=== PATIENT | male | born 1935 | race Caucasian/White ===

== ENCOUNTER 2017-07-11 23:07 | Emergency (ER) | payer MEDICARE ==
[2017-07-11 23:28] VITALS: O2SAT 100
--- NOTE | 2017-07-11 23:46 | ED.PDOC ---
History of Present Illness - General Chief Complaint: Abdominal Pain Stated Complaint: abdominal pain Time Seen by Provider: 07/11/17 23:39 Information Source: patient Exam Limitations: no limitations - History of Present Illness Initial Comments: ABD PAIN X 2 HRS. ONSET - IT AWOKE HIM FROM SLEEP. CONSTANT. IMPROVING. NO NVDC. NO CP/SOB. BM YEST NL. NO SIMILAR PREVIOUS. H/O SBO2 YRS AGO AND PT STATES "THAT WAS 10 TIMES WORSE." HAD LAP APPY IN PAST. Abdominal Pain Onset Location: epigastric Pain Radiation: no radiation Quality: mild, sharpness Timing/Duration: 1-3 hours Improving Factors: nothing Worsening Factors: nothing Associated Symptoms: denies symptoms Review of Systems - Review of Systems Constitutional: Denies: chills, diaphoresis, fever EENTM: States: no symptoms reported Respiratory: States: no symptoms reported Cardiology: Denies: chest pain, palpitations Gastrointestinal/Abdominal: States: abdominal pain. Denies: constipation, diarrhea, nausea, vomiting Genitourinary: States: no symptoms reported. Denies: dysuria, frequency, pain Musculoskeletal: States: no symptoms reported Skin: States: no symptoms reported Neurological: States: no symptoms reported Endocrine: States: no symptoms reported Hematologic/Lymphatic: States: no symptoms reported All other Systems: Reviewed and Negative Past Medical History (General) - Patient Medical History Hx Stroke: Yes Hx of COPD: Yes Hx Congestive Heart Failure: No Hx Hypertension: Yes Hx Diabetes: No Hx Gastroesophageal Reflux: No - hiatal hernia Hx MRSA: No - Vaccination History Hx Influenza Vaccination: No Hx Pneumococcal Vaccination: Yes - Social History Hx Tobacco Use: Yes Cigarettes Packs Per Day: 1 Hx Alcohol Use: No Family Medical History - Family History Father Family History: Unknown Living Status: Unknown Physical Exam - Physical Exam General Appearance: Comfortable, No apparent distress, Well Nourished Eyes, Ears, Nose, Throat Exam: PERRL/EOMI, normal ENT inspection, TMs normal Neck: full range of motion, supple Respiratory: chest non-tender, lungs clear Cardiovascular/Chest: normal peripheral pulses, regular rate, rhythm Peripheral Pulses: No deficit Gastrointestinal/Abdominal: normal bowel sounds, soft, no organomegaly, no pulsatile mass, other - EPIGASTRIC JUST BARELY TO DEEP PALPATION BUT NOT TO LIGHT PALPATION. NO GUARDING OR REBOUND. NO TYMPANI. NO FLUID WAVE. Back Exam: no CVA tenderness, no vertebral tenderness Extremity: non-tender, normal inspection Neurologic: no motor/sensory deficits, alert, normal mood/affect Skin Exam: normal color, warm/dry Lymphatic: no adenopathy Special Observations: No evidence of discomfort Progress - Progress Progress: 07/12/17 00:00 CLINICALLY C/W GERD/DYSPEPSIA - OCCURRED WHILE SUPIN (IN BED); IS IMPROVING NOW THAT IS SITTING UPRIGHT IN ER; SOLITARY SYMPTOM (NO NVDC); ABD EXAM IS BENIGN AND IS NOT AN ACUTE SURGICAL ABDOMEN; VS WNL (NO HYPOTENSION OR TACHYCARDIA). GI COCKTAIL AND ZANTAC GIVEN. 07/12/17 00:21 PT STATES THE PAIN IMPROVED ALL OF A SUDDEN. SAFE FOR DC TO HOME W/ F/U. Departure - Departure Clinical Impression: Dyspepsia Disposition: Discharge to Home or Self Care Condition: Good Departure Forms: ED Discharge - Pt. Copy, Patient Portal Self Enrollment Instructions: DI for Dyspepsia Diet: regular diet Activity: increase activity as tolerated Referrals: Anny Hanson NP [Primary Care Provider] - 1 Week Prescriptions: raNITIdine HCL [Zantac] 150 mg PO BID 15 Days Home Medications: Ambulatory Orders Albuterol Sulfate [Proair Hfa] 2 puff INH Q4H PRN 07/15/16 Finasteride [Proscar] 5 mg PO DAILY 07/15/16 Lisinopril 20 mg PO DAILY 07/15/16 raNITIdine HCL [Zantac] 150 mg PO BID 15 Days 07/12/17 Additional Instructions: The symptoms you are having and consistent with gastroesophageal reflux, where the stomach acid causes pains in the upper abdomen. The medicine I prescribed helps but only works if you take it consistently twice per day. Please take the medicine twice per day for 1 week and follow-up with your nurse practitioner to inform her if it is working or not. From there, he or she may alter the treatment or run more tests. If it worsens before then, please see her sooner or return to the ER.
[2017-07-11] MEDS ORDERED: LIDOCAINE VIS-MYLANTA 30 ML UD PO ONE (23:47)
[2017-07-11] MEDS: LIDOCAINE VIS-MYLANTA 30 ML UD PO ONE (23:57)
[2017-07-12 00:39] VITALS: BP 155/86; TEMP 98.6
== END 2017-07-12 00:39 | disposition home or self-care (01) ==
LOC: ER 23:07
DX: R10.13 Epigastric pain (principal); J44.9 Chronic obstructive pulmonary disease, unspecified; Z86.73 Personal history of transient ischemic attack (TIA), and cerebral infarction without residual deficits

== ENCOUNTER → 2018-02-16 | Outpatient (CLI) | payer MEDICARE ==
--- NOTE | 2018-02-16 17:13 | RAD ---
EXAM DESCRIPTION: KUB CLINICAL HISTORY: LEFT FLANK PN COMPARISON: None Available. TECHNIQUE: KUB FINDINGS: There is an unremarkable bowel gas pattern. No small bowel dilatation to suggest obstruction. Dextroscoliotic curvature of the lumbar spine is seen with multilevel spurring. There is no mass or calculus observed. Left kidney silhouette is obscured by overlying fecal material and bowel gas. IMPRESSION: No acute process. Electronically signed by: Michael Garsia MD 02/16/2018 5:11 PM CDT
== END ==
LOC: YCFC.O 12:31
PROVIDERS: ATTEND Nurse Practitioner Family
DX: R10.9 Unspecified abdominal pain (principal)

== ENCOUNTER → 2018-03-02 | Outpatient (CLI) | payer MEDICARE ==
--- NOTE | 2018-03-03 08:47 | RAD ---
EXAM DESCRIPTION: Hip,Left 2 Views CLINICAL HISTORY: 82 years, Male, LEFT HIP PAIN. M25.552 COMPARISON: None TECHNIQUE: AP and frog leg lateral views of the hip FINDINGS: 2 views of the left hip reveal no fracture or dislocation. Moderate spurring of the lateral acetabular margin. Convex superolateral left femoral head neck junction could indicate presence of impingement. Mild spurring of the inferior acetabular rim. Degenerative changes are seen in the lower L-spine. Sacrum and left hemipelvis appear intact. No proximal femoral fracture or lytic lesion. IMPRESSION: Negative for fracture or dislocation. Electronically signed by: Michael Garsia MD 03/03/2018 8:45 AM CDT
== END ==
LOC: YCFC.O 10:17
PROVIDERS: ATTEND Nurse Practitioner Family
DX: M25.552 Pain in left hip (principal)

== ENCOUNTER 2019-05-20 08:19 | Emergency (ER) | payer MEDICARE, MEDICAID ==
--- NOTE | 2019-05-20 08:27 | ED.PDOC ---
History of Present Illness - General Chief Complaint: Neuro Symptoms/Deficits Time Seen by Provider: 05/20/19 08:22 Source: patient Exam Limitations: no limitations - History of Present Illness Initial Comments: Patient presents from [facility] with tremors. The staff reported to EMS that he was difficult to arouse. He had paroxysmal tremors in all extremities at that point. The patient reports them same. He says that he does not believe the tremors are due to being too cold. He has a history of CVA. No other complaints. Blood sugar 124 by EMS. Timing/Duration: unsure Severity: mild Improving Factors: nothing Worsening Factors: nothing Associated Symptoms: denies symptoms Allergies/Adverse Reactions: Allergies NO KNOWN ALLERGY Allergy (Verified 08/02/16 13:50) Home Medications: Ambulatory Orders Albuterol Sulfate [Proair Hfa] 2 puff INH Q4H PRN 07/15/16 Finasteride [Proscar] 5 mg PO DAILY 07/15/16 Lisinopril 20 mg PO DAILY 07/15/16 raNITIdine HCL [Zantac] 150 mg PO BID 15 Days tab 07/12/17 Review of Systems - Review of Systems Constitutional: States: no symptoms reported EENTM: States: no symptoms reported Respiratory: States: no symptoms reported Cardiology: States: no symptoms reported Gastrointestinal/Abdominal: States: no symptoms reported Genitourinary: States: no symptoms reported Musculoskeletal: States: no symptoms reported Skin: States: no symptoms reported Neurological: States: see HPI Endocrine: States: no symptoms reported Hematologic/Lymphatic: States: no symptoms reported Past Medical History (General) - Patient Medical History Hx Stroke: Yes Hx of COPD: Yes Hx Congestive Heart Failure: No Hx Hypertension: Yes Hx Diabetes: No Hx Gastroesophageal Reflux: No - hiatal hernia Hx MRSA: No - Vaccination History Hx Influenza Vaccination: No Hx Pneumococcal Vaccination: Yes - Social History Hx Tobacco Use: Yes Hx Alcohol Use: No Family Medical History - Family History Father Family History: Unknown Living Status: Unknown Physical Exam - Physical Exam General Appearance: Alert Eye Exam: bilateral normal Ears, Nose, Throat: normal ENT inspection Neck: non-tender, full range of motion, supple Respiratory: lungs clear, normal breath sounds Cardiovascular/Chest: normal peripheral pulses, regular rate, rhythm, no edema Gastrointestinal/Abdominal: normal bowel sounds, non tender, soft Back Exam: normal inspection, no CVA tenderness Extremity: normal range of motion, non-tender, normal inspection Neurologic: erp specialist II-XII nml as tested, alert, normal mood/affect, oriented x 3, other - paroxysmal tremors in the extremities. No loss of consciousness during these tremors that only last a second or less. Patient is aware of them. Skin Exam: normal color Lymphatic: no adenopathy Progress - Progress Progress: 05/20/19 10:12 Laboratory Tests 05/20/19 05/20/19 05/20/19 08:40 08:40 08:40 WBC 6.1 RBC 4.19 L Hgb 13.0 L Hct 38.4 L MCV 91.7 MCH 31.1 H MCHC 34.0 RDW 14.5 Plt Count 220 MPV 9.3 Absolute Neuts (auto) 4.20 Absolute Lymphs (auto) 1.10 Absolute Monos (auto) 0.60 Absolute Eos (auto) 0.10 Absolute Basos (auto) 0.10 Neutrophils % 68.9 Lymphocytes % 18.8 L Monocytes % 9.3 H Eosinophils % 2.1 Basophils % 0.9 PT 9.9 INR 0.99 PTT (SP) 24.2 Sodium 139 Potassium 4.4 Chloride 107 Carbon Dioxide 24 Anion Gap 12.4 BUN 21 H Creatinine 1.36 H BUN/Creatinine Ratio 15.4 Random Glucose 119 H Serum Osmolality 281.7 Calcium 9.0 Magnesium Total Bilirubin 0.6 AST 15 ALT 10 Alkaline Phosphatase 106 Creatine Kinase CK-MB (CK-2) CK-MB (CK-2) % Troponin I Serum Total Protein 6.8 Albumin 3.8 Globulin 3.0 Albumin/Globulin Ratio 1.3 05/20/19 08:40 WBC RBC Hgb Hct MCV MCH MCHC RDW Plt Count MPV Absolute Neuts (auto) Absolute Lymphs (auto) Absolute Monos (auto) Absolute Eos (auto) Absolute Basos (auto) Neutrophils % Lymphocytes % Monocytes % Eosinophils % Basophils % PT INR PTT (SP) Sodium Potassium Chloride Carbon Dioxide Anion Gap BUN Creatinine BUN/Creatinine Ratio Random Glucose Serum Osmolality Calcium Magnesium 2.3 Total Bilirubin AST ALT Alkaline Phosphatase Creatine Kinase 65 CK-MB (CK-2) 2.2 CK-MB (CK-2) % Not Reportable Troponin I < 0.02 Serum Total Protein Albumin Globulin Albumin/Globulin Ratio CT head showed no acute disease. There was a chronic lacunar infarct that was not on his previous CT head. Patient's symptoms resolved in the E.D. His son came and said that the patient had been anxious about the loss of his phone two days ago. He said that the patient was talking and acting at his baseline. No laboratory explanation for the resolved symptoms. Care instructions given. E.R. warnings given. Questions were elicited and answered. Patient voiced understanding and agreement with the plan. Departure - Departure Clinical Impression: Occasional tremors Disposition: Discharge to SNF Condition: Good Departure Forms: ED Discharge - Pt. Copy, Patient Portal Self Enrollment Diet: other - as per your regular doctor Activity: increase activity as tolerated Referrals: MEKA RIVAS [Primary Care Provider] - 1-2 Weeks Home Medications: Ambulatory Orders Albuterol Sulfate [Proair Hfa] 2 puff INH Q4H PRN 07/15/16 Finasteride [Proscar] 5 mg PO DAILY 07/15/16 Lisinopril 20 mg PO DAILY 07/15/16 raNITIdine HCL [Zantac] 150 mg PO BID 15 Days tab 07/12/17 Additional Instructions: Return to the E.R .for worsening symptoms.
[2019-05-20 08:28] VITALS: TEMP 97.3
--- NOTE | 2019-05-20 08:42 | RAD ---
EXAM DESCRIPTION: Chest,1 View CLINICAL HISTORY: 83 years Male, tremors COMPARISON: August 02, 2016 TECHNIQUE: AP portable chest. FINDINGS: Fair expansion of the lungs is evident without consolidation, layering effusion, or large mass. Heart size and vascularity appear normal for AP technique and degree of inspiration. No gross bony, hilar, or mediastinal abnormalities are noted. IMPRESSION: Normal chest, one view Electronically signed by: Anthony Hammond MD 05/20/2019 8:40 AM CDT
--- NOTE | 2019-05-20 09:24 | CT ---
EXAM DESCRIPTION: Head CLINICAL HISTORY: 83 years Male, tremors COMPARISON: CT head 11/01/2009. TECHNIQUE: Axial images obtained from the skull base to the vertex without intravenous contrast with images. Coronal and sagittal reformations provided. This exam was performed according to our departmental dose-optimization program, which includes automated exposure control, adjustment of the mA and/or kV according to patient size and/or use of iterative reconstruction technique. Time Last Seen Well (If known) for Code Stroke: n/a FINDINGS: Brain Parenchyma, ventricles, meninges, and extra-axial spaces: Mild generalized cerebral and loss. Nonspecific white matter hypodensities in the cerebral hemispheres likely related to ischemic small vessel disease. Possible difficulty differentiating a small acute infarction given these hypodensities. Stable 8 mm hypodensity in the right lentiform nucleus. New 5 mm hypodensity in the right caudate head. No acute intracranial hemorrhage. No abnormal extra-axial fluid collection. Vascular: Atherosclerosis is within the carotid siphons. Calvarium, paranasal sinuses, mastoids, and orbits: Calvarium intact. Visualized paranasal sinuses and mastoid air cells clear. Orbits unremarkable. IMPRESSION: 1. No acute intracranial abnormality. 2. Stable chronic lacunar infarction in the right lentiform nucleus. 3. New but chronic appearing lacunar infarction in the right caudate head. 4. Senescent changes. Electronically signed by: Roger Cheek MD 05/20/2019 9:23 AM CDT
[2019-05-20 09:41] VITALS: O2SAT 93
[2019-05-20 10:47] VITALS: BP 141/76
== END 2019-05-20 10:48 ==
LOC: ER 08:19
DX: R25.1 Tremor, unspecified (principal); J44.9 Chronic obstructive pulmonary disease, unspecified; I10 Essential (primary) hypertension; Z86.73 Personal history of transient ischemic attack (TIA), and cerebral infarction without residual deficits; Z79.899 Other long term (current) drug therapy; Z87.891 Personal history of nicotine dependence

== ENCOUNTER → 2019-09-18 | Outpatient (CLI) | payer MEDICARE | LOC: GOCC 13:53 | PROVIDERS: ATTEND Internal Medicine | DX: N40.0 Benign prostatic hyperplasia without lower urinary tract symptoms (principal); R30.0 Dysuria; N17.9 Acute kidney failure, unspecified ==

== ENCOUNTER 2019-10-18 14:33 | Emergency (ER) | payer MEDICARE, MEDICAID ==
--- NOTE | 2019-10-18 15:51 | ED.PDOC ---
History of Present Illness - General Chief Complaint: Trauma Stated Complaint: Fall with AMS Time Seen by Provider: 10/18/19 15:03 Source: patient, RN notes reviewed, Vital Signs reviewed, family - Son Exam Limitations: other - Patient with dementia and therefore difficult to obtain a good history and review of systems. - History of Present Illness Initial Comments: Patient is an 84-year-old white male who presents from the shelter with complaints of left elbow pain, right hand pain and some indication of head and neck pain status post fall last night from his wheelchair and from his bed this morning. There was no witnesses to these falls and patient is unsure if he lost consciousness. The pain is mild in nature. It is throbbing. Palpation makes the hand and elbow pain worse. Nothing makes it better. Timing/Duration: 24 hours Severity: mild Improving Factors: nothing Worsening Factors: movement, other - Palpation Associated Symptoms: denies symptoms Allergies/Adverse Reactions: Allergies NO KNOWN ALLERGY Allergy (Verified 10/18/19 15:32) Home Medications: Ambulatory Orders Albuterol Sulfate [Proair Hfa] 2 puff INH Q4H PRN 07/15/16 Finasteride [Proscar] 5 mg PO DAILY 07/15/16 Lisinopril 20 mg PO DAILY 07/15/16 raNITIdine HCL [Zantac] 150 mg PO BID 15 Days tab 07/12/17 Review of Systems - Review of Systems Review of Systems: 10/18/19 15:55 Review of systems is limited secondary to patient dementia. All history and physical limited history of present illness and review of systems secondary to dementia from the patient. All information was obtained from the son. Constitutional: States: no symptoms reported EENTM: States: no symptoms reported Respiratory: States: no symptoms reported Cardiology: States: no symptoms reported Gastrointestinal/Abdominal: States: no symptoms reported Genitourinary: States: no symptoms reported Musculoskeletal: States: joint pain - Left elbow and right hand, neck pain. Denies: back pain Skin: States: other - Skin tear on left elbow Neurological: States: headache, other - History of dementia Endocrine: States: no symptoms reported Hematologic/Lymphatic: States: no symptoms reported Unable to Obtain Due To: dementia - Review of systems is limited secondary to dementia. I was able to obtain some from the patient as well as from the son. Past Medical History (General) - Patient Medical History Hx Stroke: No Hx of COPD: No Hx Cardiac Disorders: No Hx Congestive Heart Failure: No Hx Hypertension: Yes Hx Diabetes: No Hx Gastroesophageal Reflux: No - hiatal hernia Hx Cancer: No Hx MRSA: No - Vaccination History Hx Influenza Vaccination: No Hx Pneumococcal Vaccination: Yes - Social History Hx Tobacco Use: No Hx Alcohol Use: No Hx Substance Use: No Hx Substance Use Treatment: No Hx Depression: No - Activities of Daily Living Penitentiary/Assisted Living (if applicable):: [facility] - Female History Patient is a Female of Child Bearing Age (10 -59 yrs old): No Patient : No Family Medical History - Family History Father Family History: Unknown Living Status: Unknown Physical Exam - Physical Exam General Appearance: Alert, Comfortable, Well Developed, Well Groomed, Well Hydrated, Well Nourished Eye Exam: bilateral normal, bilateral abnormal EOM Ears, Nose, Throat: normal ENT inspection, normal pharynx, other - Patient is hard of hearing Neck: full range of motion, supple, normal inspection Respiratory: chest non-tender, lungs clear, normal breath sounds, no respiratory distress, no accessory muscle use Cardiovascular/Chest: normal peripheral pulses, regular rate, rhythm, no edema, no gallop, no JVD, no murmur Peripheral Pulses: radial,right: 2+, radial,left: 2+ Gastrointestinal/Abdominal: normal bowel sounds, non tender, soft, no organomegaly, no pulsatile mass Back Exam: normal inspection, no CVA tenderness, no vertebral tenderness Extremity: pelvis stable, swelling - Left elbow with skin tear and mild tenderness to palpation. Tenderness to palpation of the right hand. No crepitus felt. 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 Skin Exam: normal color, other - Skin tear left elbow Lymphatic: no adenopathy Progress - Progress Progress: Differential diagnosis: UTI, dementia, CVA, medication reaction among others. 10/18/19 18:33 In further discussions with the son, he relates that on arrival to the shelter today around 2 pm, his father had a left facial droop and left hand weakness, but these symptoms resolved prior to arrival here. This was not divulged during the initial history and physical. Of concern that the patient may have had an acute stroke. I suspect that it happened earlier in the day today. But it is unclear as the CT scan is negative and the patient's last known normal was yesterday afternoon. Plan on transfer the patient to [facility] in [place] for further evaluation of this potential stroke. I have discussed this with who accepts the patient for transfer. I have discussed this with the son he voices understanding and agreement of the plan of care. 10/18/19 18:37 Mor Garcia M.D. #[id number] - Results/Orders Results/Orders: EXAM DESCRIPTION: CT head without contrast. CLINICAL HISTORY: Fall/trauma with confusion . COMPARISON: May 20, 2019 TECHNIQUE: Contiguous axial sections are obtained as per protocol. Sagittal and coronal reformations are submitted Automatic exposure control (AEC), mA and/or kV adjustment by patient size, and/or iterative reconstructive technique was used, per departmental dose optimization program, during the performance of the CT examination. FINDINGS: Evidence of lacunar infarct is seen in the right head of the caudate nucleus and right external capsule. Periventricular deep white matter demyelinating changes are noted along with mild cerebral atrophy. Ventricles, sulci and cisterns appear normal. Normal faustin-white matter differentiation is noted. No evidence of intra or extra-axial hemorrhage, hematoma, mass, mass effect or midline shift is noted. The posterior fossa structures appear normal. The bony calvarium appears intact. The soft tissues of the scalp appear unremarkable. Normal appearance of the orbits are noted. The paranasal sinuses and mastoids appear normal. IMPRESSION: No acute findings or interval change. Electronically signed by: Aimee Monroy MD 10/18/2019 4:00 PM DINING ROOM MANAGER EXAM DESCRIPTION: Cervical Spine CLINICAL HISTORY: fall/trauma with confusion COMPARISON: The cervical spine dated September 18, 2008. TECHNIQUE: Contiguous 2 mm axial images were obtained from the skull base to the thoracic inlet level without the use of intravenous contrast. Reformatted coronal and sagittal images were also obtained and reviewed. This exam was performed according to our departmental dose- optimization program, which includes automated exposure control, adjustment of the mA and/or kV according to patient size and/or use of iterative reconstruction technique. FINDINGS: The craniocervical junction is intact. The odontoid process is in good alignment with the lateral masses of C2. The normal lordotic curvature is well preserved. The vertebral body heights are well-maintained with no acute compression deformity. Intervertebral disc space narrowing is noted at the C4-C5 level. Multilevel degenerative disease are noted more predominant at C3-C4 and C6-C7 level. Prominent anterior disc osteophyte complex is noted at C2-C3 and C3-C4 levels. Prominent posterior disc osteophyte complex is noted at C5-C6 and C6-C7 levels. The posterior disc osteophyte complex at C6-C7 level indenting the thecal sac. No evidence of subluxation or spondylolisthesis. The visualized prevertebral and paravertebral soft tissues appear normal. IMPRESSION: 1. No acute fracture or traumatic malalignment. 2. Multilevel degenerative changes more predominant at C3-C4 and C6-C7 levels. A prominent posterior disc osteophyte at C6-C7 level is indenting the thecal sac. Electronically signed by: Zay Douglas MD 10/18/2019 4:08 EXAM DESCRIPTION: Hand,Right 3 Views CLINICAL HISTORY: fall with pain of right hand COMPARISON: None Available. TECHNIQUE: AP, LATERAL, AND OBLIQUE FINDINGS: The visualized bones appear poorly mineralized. No acute fracture or dislocation. 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 The soft tissues appear grossly unremarkable. IMPRESSION: No acute traumatic abnormality of the right hand. Electronically signed by: Zay Douglas MD 10/18/2019 4:12 EXAM DESCRIPTION: Elbow,Left 2 Views CLINICAL HISTORY: 84 years Male, fall with left elbow pain COMPARISON: None. FINDINGS: The visualized bones appear mildly osteopenic. No acute fracture or dislocation. The soft tissues appear normal.. Mild degenerative changes are identified. IMPRESSION: Mild osteoarthritis of the left elbow. No acute bony abnormality. Electronically signed by: Zay Douglas MD 10/18/2019 4:11 Laboratory Results - last 24 hr 10/18/19 10/18/19 10/18/19 16:00 16:00 16:00 WBC 6.7 RBC 4.12 L Hgb 12.8 L Hct 38.4 L MCV 93.3 MCH 31.2 H MCHC 33.4 RDW 14.5 Plt Count 185 MPV 9.5 Absolute Neuts (auto) 5.00 Absolute Lymphs (auto) 0.80 L Absolute Monos (auto) 0.80 Absolute Eos (auto) 0.10 Absolute Basos (auto) 0.00 Neutrophils % 75.1 Lymphocytes % 11.7 L Monocytes % 11.4 H Eosinophils % 1.3 Basophils % 0.5 Sodium 137 Potassium 4.4 Chloride 103 Carbon Dioxide 25 Anion Gap 13.4 BUN 23 H Creatinine 1.44 H BUN/Creatinine Ratio 16.0 Random Glucose 104 Serum Osmolality 277.8 Calcium 8.8 Total Bilirubin 0.7 AST 15 ALT 12 Alkaline Phosphatase 73 Troponin I 0.02 Serum Total Protein 6.6 Albumin 3.8 Globulin 2.8 Albumin/Globulin Ratio 1.4 Lipase 32 Urine Color Urine Appearance Urine pH Ur Specific [place] Urine Protein Urine Glucose (UA) Urine Ketones Urine Blood Urine Nitrite Urine Bilirubin Urine Urobilinogen Ur Leukocyte Esterase Urine RBC Urine WBC Ur Epithelial Cells Urine Bacteria 10/18/19 16:44 WBC RBC Hgb Hct MCV MCH MCHC RDW Plt Count MPV Absolute Neuts (auto) Absolute Lymphs (auto) Absolute Monos (auto) Absolute Eos (auto) Absolute Basos (auto) Neutrophils % Lymphocytes % Monocytes % Eosinophils % Basophils % Sodium Potassium Chloride Carbon Dioxide Anion Gap BUN Creatinine BUN/Creatinine Ratio Random Glucose Serum Osmolality Calcium Total Bilirubin AST ALT Alkaline Phosphatase Troponin I Serum Total Protein Albumin Globulin Albumin/Globulin Ratio Lipase Urine Color Yellow Urine Appearance Clear Urine pH 5.5 Ur Specific [place] 1.020 Urine Protein Negative Urine Glucose (UA) Negative Urine Ketones Negative Urine Blood Negative Urine Nitrite Negative Urine Bilirubin Negative Urine Urobilinogen 0.2 Ur Leukocyte Esterase Negative Urine RBC 0 Urine WBC 0 Ur Epithelial Cells 0 Urine Bacteria 0 - EKG/XRAY/CT CT Ordered: Yes Departure - Departure Clinical Impression: Slurred speech CVA (cerebral vascular accident) Qualifiers: CVA mechanism: unspecified Qualified Code(s): I63.9 - Cerebral infarction, unspecified Time of Disposition: 17:45 Disposition: Transfer to Hospital Condition: Fair Referrals: MEKA RIVAS [Primary Care Provider] - 1-2 Weeks Home Medications: Ambulatory Orders Albuterol Sulfate [Proair Hfa] 2 puff INH Q4H PRN 07/15/16 Finasteride [Proscar] 5 mg PO DAILY 07/15/16 Lisinopril 20 mg PO DAILY 07/15/16 raNITIdine HCL [Zantac] 150 mg PO BID 15 Days tab 07/12/17 Critical Care Note - Critical Care Note Total Time (mins): 35 Transfer to Outside Facility - Transfer Information Decision to Transfer Date: 10/18/19 Decision to Transfer Time: 17:45 Reason for Transfer: required specialist not available Accepting Facility: [facility]
--- NOTE | 2019-10-18 16:01 | CT ---
EXAM DESCRIPTION: CT head without contrast. CLINICAL HISTORY: Fall/trauma with confusion . COMPARISON: May 20, 2019 TECHNIQUE: Contiguous axial sections are obtained as per protocol. Sagittal and coronal reformations are submitted Automatic exposure control (AEC), mA and/or kV adjustment by patient size, and/or iterative reconstructive technique was used, per departmental dose optimization program, during the performance of the CT examination. FINDINGS: Evidence of lacunar infarct is seen in the right head of the caudate nucleus and right external capsule. Periventricular deep white matter demyelinating changes are noted along with mild cerebral atrophy. Ventricles, sulci and cisterns appear normal. Normal faustin-white matter differentiation is noted. No evidence of intra or extra-axial hemorrhage, hematoma, mass, mass effect or midline shift is noted. The posterior fossa structures appear normal. The bony calvarium appears intact. The soft tissues of the scalp appear unremarkable. Normal appearance of the orbits are noted. The paranasal sinuses and mastoids appear normal. IMPRESSION: No acute findings or interval change. Electronically signed by: Aimee Monroy MD 10/18/2019 4:00 PM [facility]
--- NOTE | 2019-10-18 16:10 | CT ---
EXAM DESCRIPTION: Cervical Spine CLINICAL HISTORY: fall/trauma with confusion COMPARISON: The cervical spine dated September 18, 2008. TECHNIQUE: Contiguous 2 mm axial images were obtained from the skull base to the thoracic inlet level without the use of intravenous contrast. Reformatted coronal and sagittal images were also obtained and reviewed. This exam was performed according to our departmental dose-optimization program, which includes automated exposure control, adjustment of the mA and/or kV according to patient size and/or use of iterative reconstruction technique. FINDINGS: The craniocervical junction is intact. The odontoid process is in good alignment with the lateral masses of C2. The normal lordotic curvature is well preserved. The vertebral body heights are well-maintained with no acute compression deformity. Intervertebral disc space narrowing is noted at the C4-C5 level. Multilevel degenerative disease are noted more predominant at C3-C4 and C6-C7 level. Prominent anterior disc osteophyte complex is noted at C2-C3 and C3-C4 levels. Prominent posterior disc osteophyte complex is noted at C5-C6 and C6-C7 levels. The posterior disc osteophyte complex at C6-C7 level indenting the thecal sac. No evidence of subluxation or spondylolisthesis. The visualized prevertebral and paravertebral soft tissues appear normal. IMPRESSION: 1. No acute fracture or traumatic malalignment. 2. Multilevel degenerative changes more predominant at C3-C4 and C6-C7 levels. A prominent posterior disc osteophyte at C6-C7 level is indenting the thecal sac. Electronically signed by: Zay Douglas MD 10/18/2019 4:08 PM [facility]
--- NOTE | 2019-10-18 16:13 | RAD ---
EXAM DESCRIPTION: Hand,Right 3 Views CLINICAL HISTORY: fall with pain of right hand COMPARISON: None Available. TECHNIQUE: AP, LATERAL, AND OBLIQUE FINDINGS: The visualized bones appear poorly mineralized. No acute fracture or dislocation. 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 The soft tissues appear grossly unremarkable. IMPRESSION: No acute traumatic abnormality of the right hand. Electronically signed by: Zay Douglas MD 10/18/2019 4:12 PM [facility]
--- NOTE | 2019-10-18 16:13 | RAD ---
EXAM DESCRIPTION: Elbow,Left 2 Views CLINICAL HISTORY: 84 years Male, fall with left elbow pain COMPARISON: None. FINDINGS: The visualized bones appear mildly osteopenic. No acute fracture or dislocation. The soft tissues appear normal.. Mild degenerative changes are identified. IMPRESSION: Mild osteoarthritis of the left elbow. No acute bony abnormality. Electronically signed by: Zay Douglas MD 10/18/2019 4:11 PM [facility]
[2019-10-18 18:14] VITALS: TEMP 97.9
[2019-10-18 18:57] VITALS: BP 125/74; O2SAT 95
== END 2019-10-18 19:05 | disposition short-term general hospital (02) ==
LOC: ER 14:33
DX: I63.9 Cerebral infarction, unspecified (principal); R47.81 Slurred speech; S51.002A Unspecified open wound of left elbow, initial encounter; M79.641 Pain in right hand; R51 Headache; M54.2 Cervicalgia; F03.90 Unspecified dementia, unspecified severity, without behavioral disturbance, psychotic disturbance, mood disturbance, and anxiety; I10 Essential (primary) hypertension; W06.XXXA Fall from bed, initial encounter; Y92.129 Unspecified place in nursing home as the place of occurrence of the external cause; Z79.899 Other long term (current) drug therapy